=== PATIENT | male | born 1965 | race Caucasian/White ===

== ENCOUNTER 2016-06-04 03:13 | Emergency (ER) | payer MEDICARE, MEDICAID ==
[~2016-06-04] VITALS: Ht 180.3 cm; Wt 75.3 kg
[2016-06-04] MEDS ORDERED: SODIUM CHLORIDE IV ONE (03:30)
[2016-06-04] MEDS ORDERED: diphenhydrAMINE 50 MG/ML INJ (BENADRYL) IV ONE (03:30)
[2016-06-04] MEDS ORDERED: CHLORPROMAZINE IV ONE (03:30)
[2016-06-04] MEDS ORDERED: DEXAMETHASONE 4 MG/ML (DECADRON) 5ml VIAL IV ONE (03:30)
--- NOTE | 2016-06-04 03:52 | NUR ---
Patient states, "My chest hurts from the hiccups so much. Muscles feels sore. My cough is chronic form my GERD and acid reflux. "
[2016-06-04] MEDS ORDERED: SODIUM CHLORIDE FLUSH 3 ML SYR IV ONE (03:55)
[2016-06-04] MEDS ORDERED: SODIUM CHLORIDE FLUSH 10 ML SYR IV PRN (03:55)
--- NOTE | 2016-06-04 05:07 | NUR ---
Took blood pressure cough and pulse oximeter off patient so he could sleep. Dr. Maria requested that patient be able to sleep with out interuption. VS have been WNL.
--- NOTE | 2016-06-04 05:38 | NUR ---
Patient resting quietly with eyes closed and snoring. Spouse in room at bedside.
--- NOTE | 2016-06-04 07:18 | NUR ---
Patient is sleeping soundly after returning from radiology. Patient's oxygen saturation is 88-90%. Placed on oxygen at 2 liters, reported to Dr. Kirkpatrick.
[2016-06-04 08:04] VITALS: BP 122/75
== END 2016-06-04 08:02 | disposition home or self-care (01) ==
LOC: ED 03:15
DX: R06.6 Hiccough (principal); G71.0 Muscular dystrophy; K21.9 Gastro-esophageal reflux disease without esophagitis
CPT/HCPCS: 74020; 96361; 96365; 96375; 99283; J1100; J1200; J3230; J7030